=== PATIENT | male | born 1950 | race Caucasian/White ===

== ENCOUNTER → 2018-07-21 | Outpatient (CLI) | payer OTHER | END | disposition home or self-care (01) | LOC: MRI 08:40 | DX: M48.061 Spinal stenosis, lumbar region without neurogenic claudication (principal); M54.16 Radiculopathy, lumbar region; M24.28 Disorder of ligament, vertebrae; M12.88 Other specific arthropathies, not elsewhere classified, other specified site ==

== ENCOUNTER 2020-01-28 14:30 | Observation (INO) | payer OTHER ==
[~2020-01-28] VITALS: Ht 172.7 cm; Wt 99.5 kg
[2020-01-28 14:43] VITALS: BP 180/90
[2020-01-28 15:02] LABS: HEMATOCRIT 36.8 % (42.0-52.0); MEAN CELL VOLUME 109.9 fl (80.0-94.0); MEAN CORPUSCULAR HGB 39.7 pg (27.0-31.0); MEAN CORPUSCULAR HGB CONC 36.1 g/dl (33.0-37.0); MEAN PLATELET VOLUME 9.7 fl (9.6-12.3); PLATELET COUNT AUTOMATED 173 10*3/uL (130-400); RED BLOOD COUNT 3.35 10*6/uL (4.50-5.90); RED CELL DISTRI WIDTH 12.4 % (0-14.5); WHITE BLOOD COUNT 3.5 10*3/uL (4.8-10.8)
[2020-01-28 15:15] VITALS: BP 147/76
[2020-01-28 15:18] LABS: ALBUMIN 3.8 gm/dl (3.1-4.5); ALKALINE PHOSPHATASE 100 U/L (45-117); BUN 13 mg/dl (7-24); CHLORIDE 108 mmol/L (98-107); CREATININE 0.91 mg/dL (0.70-1.30); POTASSIUM 3.8 mmol/L (3.5-5.1); SGOT/AST 56 IU/L (3-35); SGPT/ALT 88 U/L (12-78); SODIUM 139 mmol/L (136-145)
[2020-01-28 15:20] LABS: TROPONIN I < 0.015 ng/ml (<0.045)
[2020-01-28 15:30] LABS: ACT PARTIAL THROMBO TIME 24.3 SECONDS (20.0-32.1)
[2020-01-28 15:38] LABS: BASOPHILS 1 % (0-1); TOTAL CELLS COUNTED 100 #CELLS
[2020-01-28 15:43] LABS: PLATELET SUFFICIENCY NORMAL (NORMAL)
[2020-01-28 15:45] VITALS: BP 141/72
--- NOTE | 2020-01-28 16:10 | NUR ---
PT POSITIONED FOR COMFORT WATCHING T.V.,SAFETY PRECAUTIONS INTACT AND CALL LIGHT WITHIN REACH,WILL CONTINUE TO MONITOR.
[2020-01-28 16:15] VITALS: BP 140/70
--- NOTE | 2020-01-28 16:19 | NUR ---
PT WITH PAIN DOWN TO A 5 @ THIS TIME PER PT.
--- NOTE | 2020-01-28 16:48 | NUR ---
UPDATES PROVIDED TO PT'S IN LOBBY X 2,PT'S AWAITING FAMILY TO SEND PICTURE OF PT'S EVERYDAY MEDS AND PT/FAMILY STATING PT W/O "MUCH OF A MEDICAL HISTORY HE(PT)DOESN'T GO TO THE DOCTORS".
--- NOTE | 2020-01-28 18:23 | NUR ---
[facility] 69, admitted to , under the services of AMBIKA Cardoso DO with a diagnosis of CHEST PAIN . Chief complaint is DENIES . Patient arrived via bed from ER. Monitor applied. Initial assessment completed. Vital signs taken and recorded. AMBIKA CARDOSO DO notified of admission to the unit. Orders received. See assessment for past medical history, medications and allergies. Patient and/or family oriented to unit. [facility] visitation policy reviewed. Clothing/patient valuable form completed. FATOU RODRIGUEZ
--- NOTE | 2020-01-28 18:46 | NUR ---
DR. DEAL'S ANSWERING SERVICE NOTIFIED OF CONSULT.
--- NOTE | 2020-01-28 19:08 | NUR ---
24 HR CHART CHECK COMPLETE.
[2020-01-28 20:00] VITALS: BP 147/68
[2020-01-29] VITALS: BP 148/75
[2020-01-29 06:30] LABS: MEAN CELL VOLUME 111.1 fl (80.0-94.0); MEAN CORPUSCULAR HGB 39.3 pg (27.0-31.0); MEAN CORPUSCULAR HGB CONC 35.4 g/dl (33.0-37.0); MEAN PLATELET VOLUME 9.9 fl (9.6-12.3); PLATELET COUNT AUTOMATED 158 10*3/uL (130-400); RED BLOOD COUNT 3.33 10*6/uL (4.50-5.90); RED CELL DISTRI WIDTH 12.3 % (0-14.5); WHITE BLOOD COUNT 3.2 10*3/uL (4.8-10.8)
[2020-01-29 06:32] LABS: ALBUMIN 3.5 gm/dl (3.1-4.5); BUN 16 mg/dl (7-24); CHLORIDE 108 mmol/L (98-107); POTASSIUM 3.8 mmol/L (3.5-5.1); SODIUM 139 mmol/L (136-145)
[2020-01-29 06:40] LABS: ALKALINE PHOSPHATASE 88 U/L (45-117); CHOLESTEROL 210 mg/dL (<200); CREATININE 0.73 mg/dL (0.70-1.30); HDL CHOLESTEROL 35 mg/dl (40-60); LDL CHOLESTEROL 132 mg/dL (9-159); SGOT/AST 55 IU/L (3-35); SGPT/ALT 75 U/L (12-78); TOTAL PROTEIN 6.7 gm/dL (6.4-8.2); TRIGLYCERIDES 216 mg/dl (<150); VLDL CHOLESTEROL 43 mg/dL (6-40)
[2020-01-29 07:40] LABS: BASOPHILS 1 % (0-1); PLATELET SUFFICIENCY NORMAL (NORMAL); TOTAL CELLS COUNTED 100 #CELLS
[2020-01-29 07:50] LABS: VITAMIN D, 25-HYDROXY 16.7 ng/mL (30-100)
[2020-01-29 08:00] VITALS: BP 129/94
--- NOTE | 2020-01-29 09:00 | NUR ---
Foreign Clerk in to talk to patient. Patient states lives at home with . There are no steps in the home. Physician: adrienne oliveira [facility]acy: [facility] Home health services: none Patient's level of ADLs: INDEPENDENT Patient has working utilities: all working DME: none Follow-up physician's appointment after d/c: will be made by hospitalist nurse director upon discharge Does patient want to access PORTAL?: no Discharge plan discussed with patient. he lives at home with , is independent in adls and ambulation, he states he will return home when discharged and denies any home needs, case management will follow. CHRISTINA CORTES
--- NOTE | 2020-01-29 09:48 | NUR ---
Not available for echo at this time.
--- NOTE | 2020-01-29 10:40 | NUR ---
INFORMED CONSENT SIGNED FOR STANDARD STRESS TEST WITH DR. TEMPLETON. RESTING EKG SINUS BRADYCARDIA, HR 54, BP 146/80. COMPLETED 6:29 OF A STANDARD MAVERICK PROTOCOL COMPLETING 3:00 STAGE II, 2.MPH/12% GRADE. PEAK HEART RATE OF 132 ACHIEVED WHICH IS 86% PREDICTED MAXIMUM AND A PEAK BP OF 162/72. NON-DIAGNOSTIC ST CHANGES PRESENT WITH RARE PAC. TEST TERMINATED D/T FATIGUE. HAS A GOOD EXERCISE TOLERANCE. LAST RECOVERY HR 80, BP 118/84. THIS IS A NEGATIVE STRESS TEST. RETURNED TO UNIT IN STABLE CONDITION.
--- NOTE | 2020-01-29 11:00 | NUR ---
case management contacted [facility] regarding patient being admitted to this facility, spoke to Nathaly, she stated they were notified patient was admitted to this facility
--- NOTE | 2020-01-29 11:34 | NUR ---
case management received a call from Nini, welfare case worker at [facility], regarding patient's admission to [facility]. Nini stated patient is not service connected and has medicare A&B. she stated his medicare should be billed for his inpatient stay. She also stated his VA should be billed for his ER visit. Nini requested patient's chart be faxed to her. Case management will fax patient's information
[2020-01-29 12:00] VITALS: BP 136/89
--- NOTE | 2020-01-29 14:59 | NUR ---
Nutritional Support Services Note: Instructed pt on 1800cal diabetic diet. Diet copy given to pt. All questions were answered. Encouraged healthy eating and proper portion sizes. All questions were answered. Encouraged follow up if needed. Rhona Donnelly Rdn
[2020-01-29] MEDS ORDERED: ATORVASTATIN CA80 M1 PO (15:30)
[2020-01-29] MEDS ORDERED: PHARMASSURE V500 MCG PO (15:30)
[2020-01-29] MEDS ORDERED: LISINOPRIL2.5 MG PO (15:30)
[2020-01-29] MEDS ORDERED: VITAMIN D250 MC1 PO (15:30)
[2020-01-29 16:00] VITALS: BP 152/79
--- NOTE | 2020-01-29 17:01 | NUR ---
Discharge instructions reviewed with patient/family. Patient receptive and verbalizes understanding. Follow-up care arranged. Written instructions given to patient/family. STEVO BOLANOS
== END 2020-01-29 17:01 | disposition home or self-care (01) ==
LOC: ED 14:30 → EDHOLD 17:09 → 4E 17:34
PROVIDERS: Emergency Medicine; Student in an Organized Health Care Education/Training Program; ADMIT Family Medicine; ATTEND Family Medicine
DX: R07.89 Other chest pain (principal); R20.2 Paresthesia of skin; D72.819 Decreased white blood cell count, unspecified; D53.9 Nutritional anemia, unspecified; E87.8 Other disorders of electrolyte and fluid balance, not elsewhere classified; R73.9 Hyperglycemia, unspecified; R74.0 Nonspecific elevation of levels of transaminase and lactic acid dehydrogenase [LDH]; J44.9 Chronic obstructive pulmonary disease, unspecified; I16.1 Hypertensive emergency; E83.41 Hypermagnesemia; D64.9 Anemia, unspecified; E53.8 Deficiency of other specified B group vitamins

== ENCOUNTER 2021-01-18 16:55 | Inpatient (IN) | payer OTHER ==
[~2021-01-18] VITALS: Ht 182.8 cm; Wt 104.3 kg
[~2021-01-18 16:55] MED LIST: ATORVASTATIN CA80 M1 PO; LISINOPRIL2.5 MG PO; PHARMASSURE V500 MCG PO; VITAMIN D250 MC1 PO
[2021-01-18 17:03] VITALS: BP 182/94
[2021-01-18 17:30] LABS: BASO % 0.4 % (0.0-1.0); EOS # 0.1 10*3/uL (0.0-0.4); EOS % 1.7 % (1.0-4.0); HEMATOCRIT 44.5 % (42.0-52.0); LYMPH # 1.7 10*3/uL (1.3-4.4); LYMPH % 36.7 % (27.0-41.0); MEAN CELL VOLUME 91.9 fl (80.0-94.0); MEAN CORPUSCULAR HGB CONC 34.8 g/dl (33.0-37.0); MEAN PLATELET VOLUME 10.1 fl (9.6-12.3); MONO # 0.4 10*3/uL (0.1-1.0); MONO % 7.7 % (3.0-9.0); NEUT # 2.5 10*3/uL (2.3-7.9); NEUT % 53.5 % (47.0-73.0); PLATELET COUNT AUTOMATED 175 10*3/uL (130-400); RED BLOOD COUNT 4.84 10*6/uL (4.50-5.90); RED CELL DISTRI WIDTH 12.3 % (0-14.5); WHITE BLOOD COUNT 4.7 10*3/uL (4.8-10.8)
[2021-01-18 17:48] LABS: ALBUMIN 4.1 gm/dl (3.1-4.5); ALKALINE PHOSPHATASE 113 U/L (45-117); BUN 10 mg/dl (7-24); CHLORIDE 107 mmol/L (98-107); CREATININE 0.95 mg/dL (0.70-1.30); POTASSIUM 3.5 mmol/L (3.5-5.1); SGOT/AST 125 IU/L (3-35); SGPT/ALT 179 U/L (12-78); SODIUM 139 mmol/L (136-145); TOTAL PROTEIN 7.7 gm/dL (6.4-8.2)
[2021-01-18 17:50] LABS: TROPONIN I < 0.015 ng/ml (<0.045)
[2021-01-18 23:28] VITALS: BP 180/81
[2021-01-19] VITALS: BP 135/94
[2021-01-19 03:42] VITALS: BP 135/75
[2021-01-19 04:19] LABS: BASO % 0.5 % (0.0-1.0); EOS # 0.1 10*3/uL (0.0-0.4); EOS % 1.8 % (1.0-4.0); HEMATOCRIT 42.8 % (42.0-52.0); LYMPH # 1.9 10*3/uL (1.3-4.4); MEAN CORPUSCULAR HGB 31.5 pg (27.0-31.0); MEAN CORPUSCULAR HGB CONC 33.9 g/dl (33.0-37.0); MEAN PLATELET VOLUME 10.3 fl (9.6-12.3); MONO # 0.6 10*3/uL (0.1-1.0); MONO % 10.1 % (3.0-9.0); NEUT # 2.9 10*3/uL (2.3-7.9); NEUT % 52.6 % (47.0-73.0); PLATELET COUNT AUTOMATED 164 10*3/uL (130-400); RED CELL DISTRI WIDTH 12.5 % (0-14.5); WHITE BLOOD COUNT 5.5 10*3/uL (4.8-10.8)
[2021-01-19 04:32] LABS: ALBUMIN 3.7 gm/dl (3.1-4.5); ALKALINE PHOSPHATASE 99 U/L (45-117); BUN 11 mg/dl (7-24); CHLORIDE 107 mmol/L (98-107); CHOLESTEROL 233 mg/dL (<200); CREATININE 0.75 mg/dL (0.70-1.30); LDL CHOLESTEROL 168 mg/dL (9-159); POTASSIUM 3.4 mmol/L (3.5-5.1); SGOT/AST 99 IU/L (3-35); SGPT/ALT 158 U/L (12-78); SODIUM 140 mmol/L (136-145); TRIGLYCERIDES 109 mg/dl (<150)
[2021-01-19 04:33] LABS: FREE T4 0.91 ng/dl (0.76-1.46)
[2021-01-19 04:38] LABS: THYROID STIM HORMONE (HS) 0.897 uIU/ml (0.358-4.75)
[2021-01-19 05:43] VITALS: BP 138/73
[2021-01-19 08:03] LABS: VITAMIN D, 25-HYDROXY 29.9 ng/mL (30-100)
[2021-01-19 09:01] VITALS: BP 144/78
[2021-01-20 06:39] VITALS: BP 148/78
[2021-01-20 08:08] VITALS: BP 146/87
[2021-01-20] MEDS ORDERED: CLOPIDOGREL75 MG PO ×4 (08:35→08:41)
[2021-01-20] MEDS ORDERED: LISINOPRIL5 MG PO ×3 (08:42→08:43)
[2021-01-20] MEDS ORDERED: ASPIRIN ADULT L81 M2 PO (08:47)
[2021-01-20] MEDS ORDERED: MECLIZINE HCL25 M2 PO (08:47)
[2021-01-20] MEDS ORDERED: LISINOPRIL2.5 MG PO (08:50)
== END 2021-01-20 10:45 | disposition home or self-care (01) | DRG 305 ==
LOC: ED 16:55 → EDHOLD 19:08
PROVIDERS: Emergency Medicine; Student in an Organized Health Care Education/Training Program; ADMIT Internal Medicine; ATTEND Internal Medicine
DX: I16.0 Hypertensive urgency (principal); R29.90 Unspecified symptoms and signs involving the nervous system; M79.18 Myalgia, other site; E04.1 Nontoxic single thyroid nodule; R91.1 Solitary pulmonary nodule; R00.1 Bradycardia, unspecified; R07.89 Other chest pain; E87.6 Hypokalemia; R74.01 Elevation of levels of liver transaminase levels; E83.41 Hypermagnesemia; J44.9 Chronic obstructive pulmonary disease, unspecified; F32.9 Major depressive disorder, single episode, unspecified; Z87.891 Personal history of nicotine dependence; Z82.49 Family history of ischemic heart disease and other diseases of the circulatory system; Z80.1 Family history of malignant neoplasm of trachea, bronchus and lung; Z79.899 Other long term (current) drug therapy

== ENCOUNTER → 2021-05-13 | Outpatient (CLI) | payer MEDICARE ==
[~2021-05-13] MED LIST changes: +ASPIRIN ADULT L81 M2 PO; +CLOPIDOGREL75 MG PO; +LISINOPRIL5 MG PO; +MECLIZINE HCL25 M2 PO
== END | disposition home or self-care (01) ==
LOC: COVID19 16:11
PROVIDERS: ATTEND Internal Medicine
DX: U07.1 COVID-19 (principal)

== ENCOUNTER 2023-07-31 13:48 | Emergency (ER) | payer MEDICARE ==
[~2023-07-31] VITALS: Ht 182.8 cm; Wt 106.1 kg
[2023-07-31] MEDS ORDERED: Acetaminophen/Hydrocodone 5 MG/325 MG TABLET PO ONE (14:20)
[2023-07-31] MEDS ORDERED: NAPROSYN500 MG PO (14:57)
== END 2023-07-31 15:03 | disposition home or self-care (01) ==
LOC: ED 13:48
DX: S83.92XA Sprain of unspecified site of left knee, initial encounter (principal); I10 Essential (primary) hypertension; J44.9 Chronic obstructive pulmonary disease, unspecified; Z90.89 Acquired absence of other organs; Z87.891 Personal history of nicotine dependence; W18.09XA Striking against other object with subsequent fall, initial encounter; Y93.89 Activity, other specified; Y92.89 Other specified places as the place of occurrence of the external cause; Y99.8 Other external cause status